=== PATIENT | female | born 2000 | race Two or more races ===

== ENCOUNTER 2022-11-02 15:45 | Outpatient (CLI) | payer OTHER | END 2022-11-02 16:45 | disposition home or self-care (01) | LOC: PRENATAL 15:45 | PROVIDERS: ATTEND Obstetrics & Gynecology Maternal & Fetal Medicine | DX: O35.3XX0 Maternal care for (suspected) damage to fetus from viral disease in mother, not applicable or unspecified (principal); Z14.8 Genetic carrier of other disease; O44.00 Complete placenta previa NOS or without hemorrhage, unspecified trimester; Z3A.21 21 weeks gestation of pregnancy ==

== ENCOUNTER 2022-12-19 15:03 | Outpatient (CLI) | payer OTHER | END 2022-12-19 17:11 | disposition home or self-care (01) | LOC: PRENATAL 15:03 | PROVIDERS: ATTEND Obstetrics & Gynecology Maternal & Fetal Medicine | DX: O26.849 Uterine size-date discrepancy, unspecified trimester (principal); Z14.8 Genetic carrier of other disease; Z3A.28 28 weeks gestation of pregnancy ==

== ENCOUNTER 2023-01-25 14:12 | Outpatient (CLI) | payer OTHER | END 2023-01-25 14:15 | disposition home or self-care (01) | LOC: PRENATAL 14:12 | PROVIDERS: ATTEND Obstetrics & Gynecology Maternal & Fetal Medicine | DX: O26.849 Uterine size-date discrepancy, unspecified trimester (principal); O36.8199 Decreased fetal movements, unspecified trimester, other fetus; Z14.8 Genetic carrier of other disease; Z3A.33 33 weeks gestation of pregnancy ==

== ENCOUNTER 2023-02-16 15:28 | Inpatient (IN) | payer OTHER ==
[~2023-02-16] VITALS: Ht 157.5 cm; Wt 65.3 kg
[2023-02-16] MEDS ORDERED: PRENATAL + DHA1 EAC1 (15:59)
[2023-02-16 16:46] LABS: HEMATOCRIT 34.8 % (36.0-45.00); HEMOGLOBIN 11.4 g/dL (12.0-15.00); MEAN CELL VOLUME 79.1 fL (80.00-100.00); MEAN CORPUSCULAR HEMOGLOBIN 25.9 pg (27.00-32.0); MEAN CORPUSCULAR HGB CONC 32.7 g/dl (32.0-36.0); PLATELET COUNT 212 K/uL (150-450); RED CELL DISTRIBUTION WIDTH 14.2 % (11.5-14.5)
[2023-02-16 16:49] LABS: PH,URINE 5.5 (5.0-8.0); URINE APPEARANCE Cloudy; URINE BILIRRUBIN Negative (NEGATIVE); URINE BLOOD Negative; URINE COLOR Yellow; URINE GLUCOSE Negative (NEGATIVE); URINE LEUKOCYTE Large; URINE NITRATE Negative; URINE PROTEIN 30 (NEGATIVE)
[2023-02-16 16:52] LABS: URINE EPITHELIAL CELLS 167.5 uL (0.0-38.8); URINE RBC 5.7 uL (0.0-20.8)
[2023-02-16 17:10] LABS: INR 0.94; PARTIAL THROMBOPLASTIN TIME 27.8 SECONDS (22.0-34.0); PROTHROMBIN TIME 9.9 SECONDS (9.0-11.5)
[2023-02-16 17:14] LABS: ALBUMIN 2.7 gm/dL (3.4-5.0); BILIRUBIN TOTAL 0.28 mg/dL (0.3-1.2); CALCIUM 8.9 mg/dL (8.5-10.1); CREATININE SERUM 0.59 mg/dL (0.55-1.02); GFR 129.95; GLOBULINA 3.4 G/DL (2.4-3.5); POTASSIUM 4.41 mEq/L (3.5-5.1); TOTAL PROTEIN 6.1 gm/dL (6.4-8.2)
[2023-02-16 17:47] LABS: URINE BACTERIA > 9821.5 uL (0.0-1933); URINE YEAST FEW /hpf
== END 2023-02-17 08:44 | disposition home or self-care (01) | DRG 833 ==
LOC: LDR 15:28
PROVIDERS: Specialist; ADMIT Obstetrics & Gynecology; ATTEND Obstetrics & Gynecology
PROC: BY4FZZZ Ultrasonography of Third Trimester, Single Fetus (ICD-10-PCS; principal; 2023-02-16)
PROC: 4A1HXCZ Monitoring of Products of Conception, Cardiac Rate, External Approach (ICD-10-PCS; 2023-02-16)
DX: O26.893 Other specified pregnancy related conditions, third trimester (principal); Z3A.37 37 weeks gestation of pregnancy; O47.03 False labor before 37 completed weeks of gestation, third trimester; R10.2 Pelvic and perineal pain

== ENCOUNTER 2023-02-18 01:31 | Inpatient (IN) | payer OTHER ==
[~2023-02-18] VITALS: Ht 157.5 cm; Wt 65.3 kg
[~2023-02-18 01:31] MED LIST: PRENATAL + DHA1 EAC1
[2023-02-18 02:17] LABS: PH,URINE 6.5 (5.0-8.0); URINE APPEARANCE Clear; URINE BILIRRUBIN Negative (NEGATIVE); URINE BLOOD Trace; URINE COLOR Yellow; URINE GLUCOSE Negative (NEGATIVE); URINE LEUKOCYTE Small; URINE NITRATE Negative; URINE PROTEIN 30 (NEGATIVE)
[2023-02-18 02:19] LABS: HEMATOCRIT 33.5 % (36.0-45.00); HEMOGLOBIN 10.8 g/dL (12.0-15.00); MEAN CELL VOLUME 79.1 fL (80.00-100.00); MEAN CORPUSCULAR HEMOGLOBIN 25.6 pg (27.00-32.0); MEAN CORPUSCULAR HGB CONC 32.4 g/dl (32.0-36.0); PLATELET COUNT 192 K/uL (150-450); RED BLOOD COUNT 4.23 M/uL (4.00-6.00); RED CELL DISTRIBUTION WIDTH 14.9 % (11.5-14.5)
[2023-02-18 02:27] LABS: URINE BACTERIA 434.7 uL (0.0-1933); URINE EPITHELIAL CELLS 85.3 uL (0.0-38.8); URINE WBC 188.3 uL (0.0-23.2)
[2023-02-18 06:03] LABS: ALBUMIN 2.9 gm/dL (3.4-5.0); BILIRUBIN TOTAL 0.28 mg/dL (0.3-1.2); CALCIUM 9.1 mg/dL (8.5-10.1); CREATININE SERUM 0.58 mg/dL (0.55-1.02); GFR 132.54; GLOBULINA 3.4 G/DL (2.4-3.5); POTASSIUM 4.41 mEq/L (3.5-5.1); TOTAL PROTEIN 6.3 gm/dL (6.4-8.2)
[2023-02-19 19:12] LABS: URINE PROT QUANT 24HR 15.1 MG/DL
[2023-02-19 19:14] LABS: URINE PROT QUANT 24 HR 430.35 MG/24HR (42-225)
[2023-02-20 11:56] LABS: HEMATOCRIT 31.1 % (36.0-45.00); HEMOGLOBIN 10.2 g/dL (12.0-15.00); MEAN CELL VOLUME 78.7 fL (80.00-100.00); MEAN CORPUSCULAR HEMOGLOBIN 25.7 pg (27.00-32.0); MEAN CORPUSCULAR HGB CONC 32.7 g/dl (32.0-36.0); PLATELET COUNT 166 K/uL (150-450); RED BLOOD COUNT 3.95 M/uL (4.00-6.00); RED CELL DISTRIBUTION WIDTH 14.8 % (11.5-14.5)
[2023-02-20 12:37] LABS: ALT/SGPT 19 U/L (12-78); AST/SGOT 20 U/L (15-37)
[2023-02-21 19:44] LABS: ABG PH 7.306 (7.35-7.45); ABG PO2 43.7 mmHg (80-100); ABG pCO2 45.2 mmHg (35-45)
[2023-02-21 19:45] LABS: BASE EXCESS -4.3 mmol/l; BICARBONATE 22.1 mmol/l (23-25); SaO2 73.4 %; Tco2 23.4 mmol/l; o2 21 %
[2023-02-21 23:32] LABS: HEMATOCRIT 33.2 % (36.0-45.00); MEAN CELL VOLUME 78.9 fL (80.00-100.00); MEAN CORPUSCULAR HEMOGLOBIN 26.2 pg (27.00-32.0); MEAN CORPUSCULAR HGB CONC 33.2 g/dl (32.0-36.0); PLATELET COUNT 184 K/uL (150-450); RED BLOOD COUNT 4.21 M/uL (4.00-6.00); RED CELL DISTRIBUTION WIDTH 14.7 % (11.5-14.5)
== END 2023-02-23 15:48 | disposition home or self-care (01) | DRG 807 ==
LOC: OBS/DEL 01:31 → LDR 03:55 → OB/GYN 03:55 → LDR 02-19 13:41 → OB/GYN 02-21 19:38
PROVIDERS: Specialist; ADMIT Obstetrics & Gynecology; ATTEND Obstetrics & Gynecology
PROC: 4A1HXCZ Monitoring of Products of Conception, Cardiac Rate, External Approach (ICD-10-PCS; 2023-02-18)
PROC: BY4FZZZ Ultrasonography of Third Trimester, Single Fetus (ICD-10-PCS; 2023-02-19)
PROC: 10E0XZZ Delivery of Products of Conception, External Approach (ICD-10-PCS; principal; 2023-02-21)
DX: O13.4 Gestational [pregnancy-induced] hypertension without significant proteinuria, complicating childbirth (principal); Z37.0 Single live birth; O26.843 Uterine size-date discrepancy, third trimester; O36.8130 Decreased fetal movements, third trimester, not applicable or unspecified; Z3A.37 37 weeks gestation of pregnancy; Z20.822 Contact with and (suspected) exposure to COVID-19